=== PATIENT | male | born 1960 | race African-American/Black ===

== ENCOUNTER 2018-05-15 06:41 | Emergency (ER) | payer MEDICAID, OTHER ==
[~2018-05-15] VITALS: Ht 182.9 cm; Wt 72.6 kg
[2018-05-15 06:46] VITALS: BP 132/82
[2018-05-15] MEDS ORDERED: Metoclopramide 10mg/2ml Inj IVP ONE (07:00)
[2018-05-15] MEDS ORDERED: DiphenhydrAMINE 50mg/ml Inj IVP ONE (07:00)
[2018-05-15] MEDS ORDERED: Ketorolac 30mg Inj IV ONE (07:00)
[2018-05-15] MEDS ORDERED: Cyclobenzaprine 10mg Tab ORAL ONE (07:00)
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
[2018-05-15 07:43] LABS: BASOPHILS % (AUTO) 1.3 % (0.0-2.0); EOSINOPHILS % (AUTO) 3.4 % (0.0-3.0); HEMATOCRIT 40.8 % (42.0-52.0); HEMOGLOBIN 13.7 G/DL (14.2-18.0); LYMPHOCYTES % (AUTO) 28.2 % (20.0-45.0); MEAN CORPUSCULAR VOLUME 90 FL (80-99); MONOCYTES % (AUTO) 9.6 % (1.0-10.0); NEUTROPHILS % (AUTO) 57.5 % (45.0-75.0); PLATELET COUNT 239 K/UL (150-450); RED BLOOD COUNT 4.52 M/UL (4.70-6.10); RED CELL DISTRIBUTION WIDTH 13.1 % (11.6-14.8); WHITE BLOOD COUNT 7.2 K/UL (4.8-10.8)
[2018-05-15 07:46] LABS: APPEARANCE,URINE CLEAR; BILIRUBIN, URINE NEGATIVE (NEGATIVE); GLUCOSE, URINE (UA) NEGATIVE (NEGATIVE); KETONES,URINE NEGATIVE (NEGATIVE); LEUKOCYTE ESTERASE ,URINE NEGATIVE (NEGATIVE); NITRITE,URINE NEGATIVE (NEGATIVE); PH,URINE 6 (4.5-8.0); PROTEIN,URINE 1+ (NEGATIVE); UROBILINOGEN,URINE NORMAL MG/DL (0.0-1.0)
[2018-05-15 07:47] LABS: ANION GAP 3 mmol/L (5-15); BLOOD UREA NITROGEN 14 mg/dL (7-18); CALCIUM 8.6 MG/DL (8.5-10.1); CARBON DIOXIDE 28 MMOL/L (21-32); CHLORIDE 108 MMOL/L (98-107); CREATININE 1.1 MG/DL (0.55-1.30); POTASSIUM 3.9 MMOL/L (3.5-5.1); SODIUM 139 MMOL/L (136-145)
[2018-05-15 07:50] LABS: ALANINE AMINOTRANSFERASE 31 U/L (12-78); ALBUMIN 3.3 G/DL (3.4-5.0); ALBUMIN/GLOBULIN RATIO 0.8 (1.0-2.7); ALKALINE PHOSPHATASE 58 U/L (46-116); ASPARTATE AMINO TRANSFERASE 22 U/L (15-37); BILIRUBIN,TOTAL 0.3 MG/DL (0.2-1.0); CREATINE KINASE 343 U/L (26-308)
[2018-05-15 08:02] LABS: COLOR,URINE YELLOW
[2018-05-15 08:23] VITALS: BP 135/75
[2018-05-15 08:31] VITALS: BP 148/86
[2018-05-15] MEDS ORDERED: IBUPROFEN600 MG ORAL (10:18)
[2018-05-15] MEDS ORDERED: TYLENOL325 MG ORAL (10:18)
[2018-05-15] MEDS ORDERED: CYCLOBENZAPRINE10 MG ORAL (10:18)
[2018-05-15 10:41] VITALS: BP 132/80
--- NOTE | 2018-05-15 10:46 | Diagnostic Imaging Report ---
Indication: left shoulder pain Findings: 3 views of the left shoulder were obtained. Alignment of the left shoulder is normal. No acute fracture is identified. Soft tissues are unremarkable. Impression: No acute injury
--- NOTE | 2018-05-15 10:47 | Diagnostic Imaging Report ---
Indication: Chest pain Comparison: None A single view chest radiograph was obtained. Findings: Cardiomediastinal appearance is within normal limits for age. The lungs are clear. Pulmonary vascularity is appropriate. The diaphragmatic contour is smooth and costophrenic angles are sharp. No pleural effusions are identified. The bones are unremarkable. There are suture anchors projected over the right shoulder. Impression: No acute findings. Previous right shoulder surgery
--- NOTE | 2018-05-16 08:18 | Cardiology Report ---
APPROVED REPORT EKG Measurement Heart [id number] Normal sinus rhythm Septal infarct, age undetermined Abnormal ECG
== END 2018-05-15 10:41 | disposition home or self-care (01) ==
LOC: EDBD 06:41 → EMR 07:20
DX: M75.102 Unspecified rotator cuff tear or rupture of left shoulder, not specified as traumatic (principal); F14.90 Cocaine use, unspecified, uncomplicated; F15.90 Other stimulant use, unspecified, uncomplicated; R22.32 Localized swelling, mass and lump, left upper limb; Z86.73 Personal history of transient ischemic attack (TIA), and cerebral infarction without residual deficits; Z72.89 Other problems related to lifestyle; Z87.891 Personal history of nicotine dependence
CPT/HCPCS: 36415; 71045; 73030; 80053; 80307; 81003; 82550; 84484; 84550; 85025; 85610; 85730; 93005; 96374; 96375; 99284; J1200; J1885; J2765

== ENCOUNTER 2018-05-23 22:47 | Emergency (ER) | payer MEDICAID ==
[~2018-05-23] VITALS: Ht 180.3 cm; Wt 77.1 kg
[~2018-05-23 22:47] MED LIST: CYCLOBENZAPRINE10 MG ORAL; IBUPROFEN600 MG ORAL; TYLENOL325 MG ORAL
[2018-05-23] MEDS ORDERED: MAPAP325 M1 PO (22:54)
[2018-05-23 23:00] VITALS: BP 138/85
--- NOTE | 2018-05-23 23:19 | Emergency Room Report ---
History of Present Illness General Chief Complaint: Pain Source: Patient Present Illness HPI Is a 58-year-old male who is currently residing in a sober living for drug rehabilitation. He was here recently for shoulder pain. Blood work was normal. He received Motrin, Tylenol and Flexeril for pain. He's been on that medicine for a while now. He said starting yesterday his legs are swelling up. Hurts to walk. [place] like pins and needle sensation. Pain is 9 out of 10. No relief with his current medication. Denies any trauma. Denies any shortness of breath. Denies any chest pain. Nothing made it better. Walking makes it worse. Allergies: Coded Allergies: No Known Allergies (Unverified , 05/15/18) Patient History Past Medical History: see triage record, old chart reviewed Past Surgical History: other Pertinent Family History: none Social History: Denies: smoking Immunizations: other Reviewed Nursing Documentation: PMH: Agreed; PSxH: Agreed Nursing Documentation-PMH Past Medical History: No History, Except For Hx Cerebrovascular Accident: Yes - 2012 Review of Systems Eye: Denies: eye pain, blurred vision ENT: Denies: ear pain, nose congestion, throat swelling Respiratory: Denies: cough, shortness of breath Cardiovascular: Denies: chest pain, palpitations Gastrointestinal: Denies: abdominal pain, diarrhea, nausea, vomiting Musculoskeletal: Reports: joint pain, muscle pain, muscle stiffness; Denies: back pain Skin: Denies: rash Neurological: Denies: headache, numbness Endocrine: Denies: increased thirst, increased urine Hematologic/Lymphatic: Denies: easy bruising All Other Systems: negative except mentioned in HPI Physical Exam Vital Signs Date Time Temp Pulse Resp B/P (MAP) Pulse Ox O2 Delivery O2 Flow Rate FiO2 05/23/18 22:46 98.6 68 16 144/88 98 vitals with mild hypertension Sp02 EP Interpretation: reviewed, normal General Appearance: well appearing, no apparent distress, alert Head: normocephalic, atraumatic Eyes: bilateral eye PERRL, bilateral eye EOMI ENT: hearing grossly normal, normal pharynx Neck: full range of motion, supple, no meningismus Respiratory: chest non-tender, lungs clear, normal breath sounds Cardiovascular #1: regular rate, rhythm, no murmur Gastrointestinal: normal bowel sounds, non tender, no mass, no organomegaly, no bruit, non-distended Musculoskeletal: back normal, gait/station normal, normal range of motion, other - 2+ pitting edema Neurologic: alert, oriented x3 Psychiatric: mood/affect normal Skin: warm/dry Medical Decision Making Diagnostic Impression: Primary Impression: Peripheral edema Additional Impressions: Rotator cuff tear Qualified Codes: M75.102 - Unspecified rotator cuff tear or rupture of left shoulder, not specified as traumatic H/O: substance abuse ER Course Patient with peripheral edema. No evidence of ACS, PE, CHF to name a few. Diuresed well with Lasix. Pain is chronic in nature. Better after Toradol. We 'll discharge home. Lab Results Impression labs normal Last Vital Signs Date Time Temp Pulse Resp B/P (MAP) Pulse Ox O2 Delivery O2 Flow Rate FiO2 05/23/18 23:00 98.6 60 16 138/85 98 Status: improved Disposition: HOME, SELF-CARE Condition: Stable Scripts Furosemide* (LASIX*) 20 Mg Tablet 20 MG ORAL DAILY, #7 TAB Prov: Toney Hart MD 05/24/18 Referrals: NON PHYSICIAN (PCP) Additional Instructions: Continue with ibuprofen. Stop Tylenol and Flexeril. Follow-up with your doctor in 7 days. Return if symptom worsen. You may benefit from referral to see an orthopedic doctor for your rotator cuff tear. Toney Hart MD May 23, 2018 23:19
[2018-05-23] MEDS ORDERED: Ketorolac 30mg Inj IV ONE (23:30)
[2018-05-23 23:35] LABS: BASOPHILS % (AUTO) 0.9 % (0.0-2.0); EOSINOPHILS % (AUTO) 5.3 % (0.0-3.0); HEMATOCRIT 39.4 % (42.0-52.0); HEMOGLOBIN 13.4 G/DL (14.2-18.0); LYMPHOCYTES % (AUTO) 31.1 % (20.0-45.0); MEAN CORPUSCULAR VOLUME 89 FL (80-99); MONOCYTES % (AUTO) 12.5 % (1.0-10.0); NEUTROPHILS % (AUTO) 50.3 % (45.0-75.0); PLATELET COUNT 192 K/UL (150-450); RED BLOOD COUNT 4.45 M/UL (4.70-6.10); RED CELL DISTRIBUTION WIDTH 12.9 % (11.6-14.8); WHITE BLOOD COUNT 8.1 K/UL (4.8-10.8)
[2018-05-23 23:46] LABS: ANION GAP 5 mmol/L (5-15); BLOOD UREA NITROGEN 13 mg/dL (7-18); CALCIUM 8.4 MG/DL (8.5-10.1); CARBON DIOXIDE 30 MMOL/L (21-32); CHLORIDE 105 MMOL/L (98-107); CREATININE 1.2 MG/DL (0.55-1.30); POTASSIUM 3.6 MMOL/L (3.5-5.1); SODIUM 140 MMOL/L (136-145)
[2018-05-23 23:53] LABS: APPEARANCE,URINE CLEAR; BILIRUBIN, URINE NEGATIVE (NEGATIVE); COLOR,URINE PALE YELLOW; GLUCOSE, URINE (UA) NEGATIVE (NEGATIVE); KETONES,URINE NEGATIVE (NEGATIVE); LEUKOCYTE ESTERASE ,URINE NEGATIVE (NEGATIVE); NITRITE,URINE NEGATIVE (NEGATIVE); PH,URINE 6 (4.5-8.0); PROTEIN,URINE NEGATIVE (NEGATIVE); UROBILINOGEN,URINE NORMAL MG/DL (0.0-1.0)
[2018-05-24] MEDS ORDERED: FUROSEMIDE20 M1 ORAL (00:30)
[2018-05-24 00:46] VITALS: BP 127/60
== END 2018-05-24 00:45 | disposition home or self-care (01) ==
LOC: EDBD 22:47 → EMR 22:57
DX: R60.0 Localized edema (principal); M75.102 Unspecified rotator cuff tear or rupture of left shoulder, not specified as traumatic; I10 Essential (primary) hypertension; F19.10 Other psychoactive substance abuse, uncomplicated; Z86.73 Personal history of transient ischemic attack (TIA), and cerebral infarction without residual deficits; X58.XXXA Exposure to other specified factors, initial encounter; Y92.89 Other specified places as the place of occurrence of the external cause
CPT/HCPCS: 36415; 80048; 80307; 81003; 83880; 84484; 85025; 96374; 96375; 99283; J1885; J1940